=== PATIENT | male | born 1950 | race Two or more races ===

== ENCOUNTER 2019-04-18 20:03 | Inpatient (IN) ==
[2019-04-18] MEDS ORDERED: SODIUM CHLORIDE 0.9% 1000ML 1,000 ML IV ONE (20:48)
[2019-04-18] MEDS ORDERED: KETOROLAC TROMETHAMINE 15 MG/ML VIAL IV STA (20:48)
[2019-04-18 21:42] LABS: Basophils # (auto) 0.02 K/uL (0-0.2); Basophils % (auto) 0.2 %; Eosinophils # (auto) 0.03 K/uL (0-0.5); Eosinophils % (auto) 0.3 %; Hematocrit (blood only) 36.2 % (42-52); Hemoglobin 12.2 g/dL (14.0-18.0); Immature Granulocytes # (auto) 0.01 K/uL (0.00-0.02); Immature Granulocytes % (auto) 0.1 %; Lymphocytes # (auto) 0.49 K/uL (1.2-3.4); Lymphocytes % (auto) 5.1 %; Mean Corpuscular Hgb Conc 33.7 g/dL (32-36); Mean Platelet Volume 9.7 fL (7.4-10.4); Monocytes # (auto) 0.67 K/uL (0.11-0.59); Neutrophils % (auto) 87.3 %; Platelet Count 297 K/uL (130-400); RDW Coefficient of Variation 14.7 % (11.5-14.5); RDW Standard Deviation 44.8 fL (36.4-46.3); Red Blood Count 4.36 M/uL (4.7-6.1); White Blood Count 9.62 K/uL (4.8-10.8)
[2019-04-18 21:53] LABS: INR 1.2 (0.9-1.1); Partial Thromboplastin Ratio 1.2; Partial Thromboplastin Time 32.1 Seconds (21.0-31.0); Prothrombin Time 11.7 Seconds (9.0-12.0)
[2019-04-18 21:55] LABS: Albumin Level 3.1 gm/dl (3.4-5.0); BUN Creatinine Ratio 13.4 (10-20); Creatinine Clr Calc Pharmacy 80.3 ml/min; Est GFR (African American) 91.6; Magnesium 2.2 mg/dl (1.8-2.4); Potassium 3.5 mmol/L (3.5-5.1)
[2019-04-18] MEDS ORDERED: CEFEPIME 2,000 MG/20 ML VIAL IV STA (21:56)
[2019-04-18 21:58] LABS: Albumin Globulin Ratio 0.8 (0.9-2); Bilirubin,Total 2.1 mg/dl (0.2-1); Globulin 3.9 gm/dl (2.5-4.0)
--- NOTE | 2019-04-18 21:58 | XRay Report ---
XR chest 1V portable CLINICAL HISTORY: Sepsis COMPARISON STUDY: No previous studies for comparison. FINDINGS: Lung volumes are normal. Lungs are clear. There is no pneumothorax or pleural effusion. Car diac size is normal. Mediastinal contours are normal. There is no evidence for pulmonary edema. Lucen cy under the hemidiaphragms favors pneumoperitoneum. IMPRESSION: 1. Lucency under the hemidiaphragms which favors pneumoperitoneum. This could be correlated with abdo shahram pain. Findings discussed with Dr. Lucero at time of dictation. 2. No acute cardiopulmonary findings. Electronically signed by: Lee Mcdowell M.D. 04/18/2019 9:56 PM
[2019-04-18 22:11] LABS: Procalcitonin 0.59 ng/ml (0-0.5)
--- NOTE | 2019-04-18 22:40 | CT Scan Report ---
CT OF THE ABDOMEN AND PELVIS WITHOUT CONTRAST CLINICAL HISTORY: poss perf or free air COMPARISON STUDY: No previous studies for comparison. TECHNIQUE: Axial images of the abdomen and pelvis were obtained without IV contrast. Images were revi ewed in the axial, sagittal, and coronal planes. Automated exposure control was utilized for the tracee dy. A dose lowering technique was utilized adhering to the principles of ALARA. FINDINGS: Lung bases are unremarkable. A small amount of pneumomediastinum located anterior to the di stal esophagus likely originates from the abdomen and pelvis. There is extensive pneumoperitoneum. Th e source for pneumoperitoneum is not clear on this examination. There is colonic diverticulosis. No b owel wall thickening is identified to definitively indicate acute diverticulitis. Unenhanced images o f the liver, adrenal glands, kidneys and pancreas are unremarkable. There is no biliary or pancreatic ductal dilatation. There is minimal pericholecystic infiltration however the gallbladder is not dist ended. There is no hydronephrosis. There is mild splenomegaly. Trace perihepatic ascites is noted. Th ere is no pneumatosis. The appendix is unremarkable. Note is made of a complex fluid collection withi n the left anterior aspect of the pelvis and measures 8.8 x 7.8 cm this extends adjacent infiltration with suspected thickening of the wall of this fluid collection. There is mass effect upon the bladde r which is mildly distended. An additional 4.7 x 2.9 cm right anterior pelvic fluid collection is not ed. No suspicious osseous lesion is noted. No evidence for a bowel obstruction. The prostate is surgi geraldo absent. Fat-containing left inguinal hernia is noted. There is gas within the umbilical hernia. IMPRESSION: 1. Extensive pneumoperitoneum. In the absence of recent procedure, the findings suggest a perforated hollow viscus. Definitive source not identified on this exam although considerations include a perfor ated diverticulum or peptic ulcer. 2. 8.8 x 7.8 cm hypodensity within the left anterior aspect of the pelvis with wall thickening and ad jacent infiltration. Given prostatectomy, this favors a lymphocele and the appearance raises the poss ibility of an infected lymphocele. A simple appearing 4.7 x 2.9 cm right anterior pelvic fluid collec tion which may reflect an additional lymphocele. 3. Mild splenomegaly. Electronically signed by: Lee Mcdowell M.D. 04/18/2019 10:38 PM
[2019-04-18 22:47] LABS: Lyme Ab IgG w/WB Rflx Negative (Negative); Lyme Ab IgM w/WB Rflx Negative (Negative)
[2019-04-18] MEDS ORDERED: ACETAMINOPHEN 1,000 MG/100 ML VIAL IV STA (23:05)
[2019-04-18 23:07] LABS: Appearance Urine Clear (Clear); Bilirubin Urine Negative (Negative); Blood Urine Negative (Negative); Color Urine Yellow; Glucose Urine UA Negative (Negative); Ketones Urine 1+ (Negative); Leukocyte Esterase Urine Negative (Negative); Nitrite Urine Negative (Negative); Protein Urine Negative (Negative); Specific Gravity Urine 1.012 (1.000-1.030); Urobilinogen Urine Positive (Negative); pH Urine 5.5 (4.5-7.5)
--- NOTE | 2019-04-19 00:33 | Surgery Consultation ---
Date of Consultation April 19, 2019 Assessment & Plan (1) Intra-abdominal free air of unknown etiology: This patient presented with fever. He had no abdominal pain whatsoever. His abdominal exam is completely benign with no tenderness and normal bowel sounds. His lactate level is 1.0 and his white blood cell count is normal. He has no history of diverticulitis nor does have a history of peptic ulcer disease. There is no pain or tenderness in the left lower quadrant or in the upper abdomen. The etiology of the free air is unclear but there is no peritonitis at the present time. I would not recommend surgical intervention immediately. I agree with antibiotics and IV fluid hydration. I would keep him n.p.o. (2) Fever: As above (3) Intraabdominal fluid collection: The intra-abdominal fluid collection is probably related to his previous surgery. It may be a lymphocele but considering the fever no other obvious identifiable source of this may have become infected and may be an abscess. Per cutaneous CT-guided drainage would be a first option. The patient has expressed a wish to possibly go back to the [facility]. That would not be feasible tonight but may be able to be arranged in the morning. History of Present Illness Reason for Consultation: Intra-abdominal free air Requesting Physician: Dr. Lucero History of Present Illness Dr. Lucero asked me to see this 68-year-old male who presented to the emergency room with acute date of fever that went as high as 103. About 6 weeks ago he underwent a laparoscopic single site prostatectomy. He was discharged on postoperative day #1. He has been doing very well until 3 days ago when he got out of the shower and while toweling off felt a chill. From that point on he has had intermittent fever with temperatures as high as 103. When his temperature is elevated he feels poorly in the sense of fatigue. He has not had any abdominal pain whatsoever over these last 3 days. He had some mild nausea on the day that the fevers began but that is resolved. He has no vomiting. His bowels have been irregular. They are formed for the most part. Was taking a stool softener and that gave him some loose stool. He has not seen melena or hematochezia. He is hungry at the present time. He had no syncope or near syncope. He had a colonoscopy that he thinks was in October of this year. He was told that he had diverticuli but he has no history of diverticulitis. He takes Tums as an antiacid on rare occasion. He has no history of peptic ulcer disease. At the present time his temperature has returned back to below 37. His heart rate is now in the 80s. He was never hypotensive. He denies dysuria and hematuria. He has not had difficulty passing his urine. Allergies Allergy/AdvReac Type Severity Reaction Status Date / Time Penicillins Allergy Hives Verified 04/19/19 00:14 Home Medications Home Medications Medication Instructions Recorded Confirmed Type acetaminophen [Tylenol Extra 1,000 mg PO Q6H PRN 04/19/19 04/19/19 History Strength] aspirin [Aspirin Low Dose] 81 mg PO DAILY 04/19/19 04/19/19 History atorvastatin 40 mg PO DAILY 04/19/19 04/19/19 History ibuprofen 400 mg PO Q6H PRN 04/19/19 04/19/19 History metformin 1,000 mg PO HS 04/19/19 04/19/19 History omega-3 acid ethyl esters 1 cap PO DAILY 04/19/19 04/19/19 History ramipril 5 mg PO DAILY 04/19/19 04/19/19 History Patient History Medical History Elevated bilirubin (Chronic) Diabetes type 2, controlled Hypercholesterolemia Hypertension Surgical History H/O prostatectomy (Chronic) laparoscopic single site at [facility] 03/06 H/O hemorrhoidectomy Family History Other No significant family history Social History Preferred Language: Taiwanese Feels Safe at Home: Yes Smoking Status: Never smoker Review of Systems Constitutional: + fever, + chills, + fatigue and + weight loss (25 pounds over the last 2 months) Respiratory: no cough and no dyspnea Cardiovascular: no chest pain, no dyspnea at rest and no edema Gastrointestinal: as per Subjective / HPI Genitourinary: + as per Subjective / HPI Neurologic: no gait abnormality Physical Exam Constitutional: well developed; no acute distress Neck: trachea midline Respiratory: normal respiratory effort, lungs clear to auscultation Cardiovascular: Rate/Rhythm: regular rate and regular rhythm Gastrointestinal (Abdomen): Inspection/Auscultation: abdomen normal to inspection, normal bowel sounds and + abdominal surgical incision (Clean, dry and intact); abdomen not distended Percussion/Palpation: abdomen soft and + hernia (Small easily reduced and nontender umbilical hernia); abdomen nontender Skin: no rashes Lymphatic: no cervical lymphadenopathy Results & Data Vital Signs (Past 12 Hours) Vital Signs Temp Pulse Resp BP Pulse Ox 04/19/19 00:01 97 04/19/19 00:00 130/73 97 04/18/19 23:45 99 04/18/19 23:31 95 04/18/19 23:30 96 04/18/19 23:15 96 04/18/19 23:11 97 04/18/19 23:10 36.5 C 115/61 96 04/18/19 22:45 95 04/18/19 22:43 96 04/18/19 22:42 107/58 L 96 04/18/19 22:06 95 04/18/19 22:00 122/64 95 04/18/19 21:18 94 04/18/19 20:20 38.8 C H 107 H 20 130/63 97 Laboratory Results 04/18/19 04/18/19 04/18/19 Range/Units 23:00 21:30 21:28 WBC (4.8-10.8) K/uL RBC (4.7-6.1) M/uL Hgb (14.0-18.0) g/dL Hct (42-52) % MCV (80-100) fL MCH (25-34) pg MCHC (32-36) g/dL RDW Std Deviation (36.4-46.3) fL RDW Coeff of Marnie (11.5-14.5) % Plt Count (130-400) K/uL MPV (7.4-10.4) fL Immature Gran % (Auto) % Neut % (Auto) % Lymph % (Auto) % Gates % (Auto) % Eos % (Auto) % Baso % (Auto) % Immature Gran # (Auto) (0.00-0.02) K/uL Neut # (Auto) (1.4-6.5) K/uL Lymph # (Auto) (1.2-3.4) K/uL Gates # (Auto) (0.11-0.59) K/uL Eos # (Auto) (0-0.5) K/uL Baso # (Auto) (0-0.2) K/uL PT (9.0-12.0) Seconds INR (0.9-1.1) APTT (21.0-31.0) Seconds PTT Ratio Sodium (136-145) mmol/L Potassium (3.5-5.1) mmol/L Chloride (98-107) mmol/L Carbon Dioxide (21-32) mmol/L Anion Gap (3-11) BUN (7-18) mg/dl Creatinine (0.6-1.4) mg/dl Est Cr Clr Drug Dosing ml/min Est GFR ( Amer) Est GFR (Non-Af Amer) BUN/Creatinine Ratio (10-20) Glucose (70-99) mg/dl Lactate 1.0 (0.4-2.0) mmol/L Calcium (8.5-10.1) mg/dl Magnesium (1.8-2.4) mg/dl Total Bilirubin (0.2-1) mg/dl AST (15-37) U/L ALT (12-78) U/L Alkaline Phosphatase (45-117) U/L Total Protein (6.4-8.2) gm/dl Albumin (3.4-5.0) gm/dl Globulin (2.5-4.0) gm/dl Albumin/Globulin Ratio (0.9-2) Procalcitonin 0.59 H (0-0.5) ng/ml Urine Color Yellow Urine Appearance Clear (Clear) Urine pH 5.5 (4.5-7.5) Ur Specific Herlong 1.012 (1.000-1.030) Urine Protein Negative (Negative) Urine Glucose (UA) Negative (Negative) Urine Ketones 1+ H (Negative) Urine Blood Negative (Negative) Urine Nitrite Negative (Negative) Urine Bilirubin Negative (Negative) Urine Urobilinogen Positive H (Negative) Ur Leukocyte Esterase Negative (Negative) Lyme Disease IgG Ab Negative (Negative) Lyme Disease IgM Ab Negative (Negative) 04/18/19 04/18/19 04/18/19 Range/Units 21:28 21:28 21:28 WBC 9.62 (4.8-10.8) K/uL RBC 4.36 L (4.7-6.1) M/uL Hgb 12.2 L (14.0-18.0) g/dL Hct 36.2 L (42-52) % MCV 83.0 (80-100) fL MCH 28.0 (25-34) pg MCHC 33.7 (32-36) g/dL RDW Std Deviation 44.8 (36.4-46.3) fL RDW Coeff of Marnie 14.7 H (11.5-14.5) % Plt Count 297 (130-400) K/uL MPV 9.7 (7.4-10.4) fL Immature Gran % (Auto) 0.1 % Neut % (Auto) 87.3 % Lymph % (Auto) 5.1 % Gates % (Auto) 7.0 % Eos % (Auto) 0.3 % Baso % (Auto) 0.2 % Immature Gran # (Auto) 0.01 (0.00-0.02) K/uL Neut # (Auto) 8.40 H (1.4-6.5) K/uL Lymph # (Auto) 0.49 L (1.2-3.4) K/uL Gates # (Auto) 0.67 H (0.11-0.59) K/uL Eos # (Auto) 0.03 (0-0.5) K/uL Baso # (Auto) 0.02 (0-0.2) K/uL PT 11.7 (9.0-12.0) Seconds INR 1.2 H (0.9-1.1) APTT 32.1 H (21.0-31.0) Seconds PTT Ratio 1.2 Sodium 135 L (136-145) mmol/L Potassium 3.5 (3.5-5.1) mmol/L Chloride 104 (98-107) mmol/L Carbon Dioxide 23 (21-32) mmol/L Anion Gap 9.0 (3-11) BUN 13 (7-18) mg/dl Creatinine 0.99 (0.6-1.4) mg/dl Est Cr Clr Drug Dosing 80.3 ml/min Est GFR ( Amer) 91.6 Est GFR (Non-Af Amer) 79.0 BUN/Creatinine Ratio 13.4 (10-20) Glucose 144 H (70-99) mg/dl Lactate (0.4-2.0) mmol/L Calcium 9.0 (8.5-10.1) mg/dl Magnesium 2.2 (1.8-2.4) mg/dl Total Bilirubin 2.1 H (0.2-1) mg/dl AST 15 (15-37) U/L ALT 25 (12-78) U/L Alkaline Phosphatase 94 (45-117) U/L Total Protein 7.0 (6.4-8.2) gm/dl Albumin 3.1 L (3.4-5.0) gm/dl Globulin 3.9 (2.5-4.0) gm/dl Albumin/Globulin Ratio 0.8 L (0.9-2) Procalcitonin (0-0.5) ng/ml Urine Color Urine Appearance (Clear) Urine pH (4.5-7.5) Ur Specific Herlong (1.000-1.030) Urine Protein (Negative) Urine Glucose (UA) (Negative) Urine Ketones (Negative) Urine Blood (Negative) Urine Nitrite (Negative) Urine Bilirubin (Negative) Urine Urobilinogen (Negative) Ur Leukocyte Esterase (Negative) Lyme Disease IgG Ab (Negative) Lyme Disease IgM Ab (Negative) Diagnostic Findings FINDINGS: Lung bases are unremarkable. A small amount of pneumomediastinum located anterior to the distal esophagus likely originates from the abdomen and pelvis. There is extensive pneumoperitoneum. The source for pneumoperitoneum is not clear on this examination. There is colonic diverticulosis. No bowel wall thickening is identified to definitively indicate acute diverticulitis. Unenhanced images of the liver, adrenal glands, kidneys and pancreas are unremarkable. There is no biliary or pancreatic ductal dilatation. There is minimal pericholecystic infiltration however the gallbladder is not distended. There is no hydronephrosis. There is mild splenomegaly. Trace perihepatic ascites is noted. There is no pneumatosis. The appendix is unremarkable. Note is made of a complex fluid collection within the left anterior aspect of the pelvis and measures 8.8 x 7.8 cm this extends adjacent infiltration with suspected thickening of the wall of this fluid collection. There is mass effect upon the bladder which is mildly distended. An additional 4.7 x 2.9 cm right anterior pelvic fluid collection is noted. No suspicious osseous lesion is noted. No evidence for a bowel obstruction. The prostate is surgically absent. Fat- containing left inguinal hernia is noted. There is gas within the umbilical hernia. IMPRESSION: 1. Extensive pneumoperitoneum. In the absence of recent procedure, the findings suggest a perforated hollow viscus. Definitive source not identified on this exam although considerations include a perforated diverticulum or peptic ulcer. 2. 8.8 x 7.8 cm hypodensity within the left anterior aspect of the pelvis with wall thickening and adjacent infiltration. Given prostatectomy, this favors a lymphocele and the appearance raises the possibility of an infected lymphocele. A simple appearing 4.7 x 2.9 cm right anterior pelvic fluid collection which may reflect an additional lymphocele. 3. Mild splenomegaly. (1) Fever Fever type: unspecified Qualified Code(s): R50.9 - Fever, unspecified
[2019-04-19] MEDS ORDERED: NITROGLYCERIN SL 0.4 MG/TAB TAB SL PRN (01:00)
[2019-04-19] MEDS ORDERED: ACETAMINOPHEN 325 MG TAB PO PRN (01:00)
[2019-04-19] MEDS ORDERED: ONDANSETRON INJ 2 MG/ML 2 ML VIAL IV PRN (01:00)
[2019-04-19] MEDS ORDERED: CEFEPIME CONSULT ACTIVE PRN (01:04)
[2019-04-19] MEDS: metroNIDAZOLE 500 MG/100 ML BAG IV SCH ×2 (01:14→09:28)
[2019-04-19] MEDS: SODIUM CHLORIDE 0.9% 1000ML 1,000 ML IV SCH ×2 (01:14→09:29)
[2019-04-19] MEDS ORDERED: GLUCOSE 10 TABS/TUBE PO PRN (01:15)
[2019-04-19] MEDS ORDERED: DEXTROSE 50% 50 ML SYRINGE IV PRN (01:15)
[2019-04-19] MEDS ORDERED: CARBOHYDRATES FOR HYPOGLYCEMIA PO PRN (01:15)
[2019-04-19] MEDS ORDERED: GLUCOSE 40% GEL 15 GM TUBE PO PRN (01:15)
[2019-04-19] MEDS ORDERED: GLUCAGON FOR INJ 1 MG VIAL IM PRN (01:15)
--- NOTE | 2019-04-19 02:44 | History and Physical Report ---
DATE OF ADMISSION: 04/19/2019 CHIEF COMPLAINT: Fever. HISTORY OF PRESENT ILLNESS: This is a 68-year-old male with past medical history significant for type 2 diabetes, obstructive sleep apnea, hypertension, recently diagnosed prostate cancer. On 03/08/2019, he had laparoscopic prostatectomy at [facility] just with single laparoscopic port. Since surgery he did fine, but since last Thursday he had a temperature at home and was shaky. He took Tylenol and took rest, it went away, and Thursday was fine and Thursday he had again some mild temperature. He took rest and it got resolved and again on Thursday morning he had low-grade temperature, his temperature was like 98, but as the day progressed later in the evening, the temperature spiked to 103. Then at that time, he decided to come to the ER. In the ER, when he came in initially, his temperature was 38.8. Currently afebrile, his hemodynamics are stable. No leukocytosis, but his CAT scan of the abdomen and pelvis is showing extensive pneumoperitoneum for possible perforated hollow viscus, but patient denies any abdominal pain. He had some nausea on Thursday and Thursday, but today does not have any nausea. Normal bowel movements. No blood in the stools, no black stools. Normal bladder movements. No hematuria, no burning micturition. No chest pain, no shortness of breath, no cough, no headache, no blurred vision, no earache, no runny nose, no sore throat, no difficulty swallowing. Appetite is okay. Ambulating okay. No swelling in the legs. No rash. ER notified general surgery and they want to admit him to hospital and place him on antibiotics and they will come and see the patient. Currently, the patient is hemodynamically stable and patient is totally asymptomatic. ALLERGIES: PENICILLINS. PAST MEDICAL HISTORY: As mentioned above. PAST SURGICAL HISTORY: Left and right eye grafts, colonoscopy, simple hemorrhoidectomy, prostate biopsy, cataract surgeries. MEDICATIONS: The patient is on ramipril 5 mg p.o. daily, omega-3 fatty acids 4 capsules every day, metformin 1000 mg p.o. nightly, Lipitor 40 mg p.o. daily, aspirin 81 mg p.o. daily. FAMILY HISTORY: Significant for mother had colon cancer, maternal grandmother had glaucoma, sister has cancer. SOCIAL HISTORY: and lives with his . No smoking, alcohol occasional. No drug use. REVIEW OF SYMPTOMS: As per HPI. Rest of the review of symptoms is negative. PHYSICAL EXAMINATION: GENERAL: The patient is of moderate build, not in acute distress. VITAL SIGNS: Temperature 36.5, pulse 107, respiratory rate 20, blood pressure 130/77, oxygen 97% on room air. HEENT: No pallor, mild icterus. Pupils equal, round, and reactive to light. NECK: No JVD, no neck masses, no carotid bruits. CARDIOVASCULAR: S1, S2 heard, regular rate and rhythm, no murmur, no gallop. RESPIRATORY SYSTEM: Normal AP diameter. No accessory muscle use. No wheezing, no crackles. ABDOMEN: Soft, bowel sounds present. Nontender. No distention. CENTRAL NERVOUS SYSTEM: Cranial nerves II-XII grossly intact. Nonfocal. EXTREMITIES: No edema, no erythema. LABORATORY DATA: WBC 9.6, hemoglobin 12.2, hematocrit 36.2, platelets 297. PT 11.7, INR 1.2, APTT 32.1. Sodium 135, potassium 3.5, chloride 104, bicarbonate 23, BUN 13, creatinine 0.9, serum glucose 144. Lactate 1.0, calcium 9, magnesium 2.2, total bilirubin 2.1, AST 15, ALT 25, alkaline phosphatase 94. Procalcitonin 0.59. Urinalysis, positive for urobilinogen. He is Lyme negative. IMAGING DATA: CT of the abdomen and pelvis shows extensive pneumoperitoneum in the absence of recent procedure findings suggest perforated hollow viscus. Definite source not identified, although consideration included perforated diverticulum or peptic ulcer. A second 8.8 x 7.8 cm hypodensity within the left anterior aspect of the pelvis with wall thickening and distant infiltration. Given prostatectomy, this favors a lymphocele and the appearance has the possibility of an infected lymphocele. A simple-appearing 4.7 x 2.7 cm anterior pelvic fluid collection which may reflect an additional lymphocele. Mild splenomegaly. CXR lucency under hemidiaphragm favors pneumoperitoneum. This could be correlated with abdominal pain. , no acute cardiopulmonary findings. ASSESSMENT AND PLAN: A 68-year-old male who presents with fever. 1. Fever. The patient recently had laparoscopic prostatectomy at [facility] on 03/08/2019. Since then he was doing fine and developed fever since last Thursday. He is currently hemodynamically stable. Lactic acid is normal. Received iv cefepime in the ER. No leukocytosis. His bilirubin is 2.1, but his LFTs are normal. Lyme screen in negative. CT of the abdomen and pelvis is showing extensive pneumoperitoneum and also 8.8 x 7.8 cm hypodensity in the anterior aspect the pelvis, possible lymphocele. ER consulted stat surgical consult, but surgery does not know exactly what is happening as there was no abdominal pain and abdomen is not tender and lactic acid is normal. They do not think this is any ruptured diverticulum or ruptured peptic ulcer disease, but thinks that is possibly might be an abscess at surgical site. Currently starting on IV antibiotics cefepime and Flagyl. We will also consult urology for their opinion and closely monitor in the tele floor.May need to be transferred to tertiary center for possible drainage of lymphocele/abscess. 2. Elevated bilirubin, could be Gilbert syndrome, we will follow the repeat labs. 3. History of prediabetes, holding metformin, placed on insulin sliding scale, HbA1c level. 4. History of hyperlipidemia. Hold statin for now. 5. History of prostate cancer status post prostatectomy as above. 6. Deep venous thrombosis prophylaxis, sequential compression devices for now. DISPOSITION: Admit to tele floor. To be determined.Level 1 full code. MTDD
[2019-04-19] MEDS: INSULIN ASPART 100 UNITS/ML 3 ML PEN SC SCH ×2 (05:25→12:30)
[2019-04-19] MEDS ORDERED: CEFEPIME 2,000 MG in SYRINGE 7.5 ML IV SCH (06:00)
[2019-04-19 06:16] LABS: Basophils # (auto) 0.01 K/uL (0-0.2); Basophils % (auto) 0.1 %; Eosinophils # (auto) 0.12 K/uL (0-0.5); Hematocrit (blood only) 38.3 % (42-52); Hemoglobin 12.8 g/dL (14.0-18.0); Immature Granulocytes # (auto) 0.03 K/uL (0.00-0.02); Immature Granulocytes % (auto) 0.2 %; Mean Corpuscular Hgb Conc 33.4 g/dL (32-36); Mean Corpuscular Volume 84.9 fL (80-100); Mean Platelet Volume 9.7 fL (7.4-10.4); Monocytes # (auto) 1.13 K/uL (0.11-0.59); Monocytes % (auto) 9.2 %; Neutrophils # (auto) 9.85 K/uL (1.4-6.5); Neutrophils % (auto) 80.5 %; Platelet Count 325 K/uL (130-400); RDW Coefficient of Variation 14.9 % (11.5-14.5); RDW Standard Deviation 46.2 fL (36.4-46.3); Red Blood Count 4.51 M/uL (4.7-6.1); White Blood Count 12.24 K/uL (4.8-10.8)
[2019-04-19 06:42] LABS: Estimated Average Glucose 114 mg/dl; Hemoglobin A1C 5.6 % (4.5-5.6)
[2019-04-19 06:45] LABS: BUN Creatinine Ratio 12.1 (10-20); Bilirubin Direct 0.7 mg/dl (0-0.2); Calcium 8.9 mg/dl (8.5-10.1); Creatinine Clr Calc Pharmacy 85.2 ml/min; Est GFR (African American) 98.8; Est GFR (Non-African American) 85.2; Magnesium 2.2 mg/dl (1.8-2.4); Potassium 3.8 mmol/L (3.5-5.1)
[2019-04-19 06:47] LABS: Bilirubin,Total 1.7 mg/dl (0.2-1)
--- NOTE | 2019-04-19 08:28 | Surgery Progress Note ---
Date of Service April 19, 2019 Assessment & Plan (1) Intra-abdominal free air of unknown etiology: Patient's abdomen remains benign. The etiology of the free air is not clear. He has no peritonitis. This would be a very unusual presentation for perforated viscus considering the fact that he has had no pain at all. His white blood cell count has increased today. I would continue with the antibiotics. Urology to see the patient Consider consultation with his surgeon at the [facility]. (2) Intraabdominal fluid collection: Subjective Feels very well this morning Denies abdominal pain Denies nausea Had elevated temperature again this morning which is the first 1 since admission Physical Exam Gastrointestinal (Abdomen): Inspection/Auscultation: abdomen normal to inspection and normal bowel sounds; abdomen not distended Percussion/Palpation: abdomen soft; abdomen nontender Results & Data Vital Signs (Past 12 Hours) Vital Signs Temp Pulse Pulse Resp BP BP BP 04/19/19 07:44 38.9 C H 97 H 20 128/71 04/19/19 07:40 92 H 04/19/19 03:44 36.5 C 74 65 H 109/70 04/19/19 02:29 78 04/19/19 01:00 36.7 C 82 17 114/68 04/19/19 00:01 04/19/19 00:00 130/73 04/18/19 23:45 04/18/19 23:31 04/18/19 23:30 04/18/19 23:15 04/18/19 23:11 04/18/19 23:10 36.5 C 115/61 04/18/19 22:45 04/18/19 22:43 04/18/19 22:42 107/58 L 04/18/19 22:06 04/18/19 22:00 122/64 04/18/19 21:18 Pulse Ox 04/19/19 07:44 98 04/19/19 07:40 04/19/19 03:44 98 04/19/19 02:29 04/19/19 01:00 97 04/19/19 00:01 97 04/19/19 00:00 97 04/18/19 23:45 99 04/18/19 23:31 95 04/18/19 23:30 96 04/18/19 23:15 96 07/01/19 23:11 97 04/18/19 23:10 96 04/18/19 22:45 95 04/18/19 22:43 96 04/18/19 22:42 96 04/18/19 22:06 95 04/18/19 22:00 95 04/18/19 21:18 94 Laboratory Results 04/19/19 04/19/19 04/19/19 Range/Units 05:36 05:36 05:36 WBC 12.24 H (4.8-10.8) K/uL RBC 4.51 L (4.7-6.1) M/uL Hgb 12.8 L (14.0-18.0) g/dL Hct 38.3 L (42-52) % MCV 84.9 (80-100) fL MCH 28.4 (25-34) pg MCHC 33.4 (32-36) g/dL RDW Std Deviation 46.2 (36.4-46.3) fL RDW Coeff of Marnie 14.9 H (11.5-14.5) % Plt Count 325 (130-400) K/uL MPV 9.7 (7.4-10.4) fL Immature Gran % (Auto) 0.2 % Neut % (Auto) 80.5 % Lymph % (Auto) 9.0 % Eagle % (Auto) 9.2 % Eos % (Auto) 1.0 % Baso % (Auto) 0.1 % Immature Gran # (Auto) 0.03 H (0.00-0.02) K/uL Neut # (Auto) 9.85 H (1.4-6.5) K/uL Lymph # (Auto) 1.10 L (1.2-3.4) K/uL Eagle # (Auto) 1.13 H (0.11-0.59) K/uL Eos # (Auto) 0.12 (0-0.5) K/uL Baso # (Auto) 0.01 (0-0.2) K/uL PT (9.0-12.0) Seconds INR (0.9-1.1) APTT (21.0-31.0) Seconds PTT Ratio Sodium 139 (136-145) mmol/L Potassium 3.8 (3.5-5.1) mmol/L Chloride 108 H (98-107) mmol/L Carbon Dioxide 25 (21-32) mmol/L Anion Gap 6.0 (3-11) BUN 11 (7-18) mg/dl Creatinine 0.93 (0.6-1.4) mg/dl Est Cr Clr Drug Dosing 85.2 ml/min Est GFR ( Amer) 98.8 Est GFR (Non-Af Amer) 85.2 BUN/Creatinine Ratio 12.1 (10-20) Glucose 115 H (70-99) mg/dl POC Glucose (70-99) Estimat Average Glucose 114 mg/dl Hemoglobin A1c 5.6 (4.5-5.6) % Lactate (0.4-2.0) mmol/L Calcium 8.9 (8.5-10.1) mg/dl Magnesium 2.2 (1.8-2.4) mg/dl Total Bilirubin 1.7 H (0.2-1) mg/dl Direct Bilirubin 0.7 H (0-0.2) mg/dl AST 13 L (15-37) U/L ALT 21 (12-78) U/L Alkaline Phosphatase 94 (45-117) U/L Total Protein 7.0 (6.4-8.2) gm/dl Albumin 3.0 L (3.4-5.0) gm/dl Globulin (2.5-4.0) gm/dl Albumin/Globulin Ratio (0.9-2) Procalcitonin (0-0.5) ng/ml Urine Color Urine Appearance (Clear) Urine pH (4.5-7.5) Ur Specific [place] (1.000-1.030) Urine Protein (Negative) Urine Glucose (UA) (Negative) Urine Ketones (Negative) Urine Blood (Negative) Urine Nitrite (Negative) Urine Bilirubin (Negative) Urine Urobilinogen (Negative) Ur Leukocyte Esterase (Negative) Lyme Disease IgG Ab (Negative) Lyme Disease IgM Ab (Negative) 04/19/19 04/18/19 04/18/19 Range/Units 05:24 23:00 21:30 WBC (4.8-10.8) K/uL RBC (4.7-6.1) M/uL Hgb (14.0-18.0) g/dL Hct (42-52) % MCV (80-100) fL MCH (25-34) pg MCHC (32-36) g/dL RDW Std Deviation (36.4-46.3) fL RDW Coeff of Marnie (11.5-14.5) % Plt Count (130-400) K/uL MPV (7.4-10.4) fL Immature Gran % (Auto) % Neut % (Auto) % Lymph % (Auto) % Eagle % (Auto) % Eos % (Auto) % Baso % (Auto) % Immature Gran # (Auto) (0.00-0.02) K/uL Neut # (Auto) (1.4-6.5) K/uL Lymph # (Auto) (1.2-3.4) K/uL Eagle # (Auto) (0.11-0.59) K/uL Eos # (Auto) (0-0.5) K/uL Baso # (Auto) (0-0.2) K/uL PT (9.0-12.0) Seconds INR (0.9-1.1) APTT (21.0-31.0) Seconds PTT Ratio Sodium (136-145) mmol/L Potassium (3.5-5.1) mmol/L Chloride (98-107) mmol/L Carbon Dioxide (21-32) mmol/L Anion Gap (3-11) BUN (7-18) mg/dl Creatinine (0.6-1.4) mg/dl Est Cr Clr Drug Dosing ml/min Est GFR ( Amer) Est GFR (Non-Af Amer) BUN/Creatinine Ratio (10-20) Glucose (70-99) mg/dl POC Glucose 97 (70-99) Estimat Average Glucose mg/dl Hemoglobin A1c (4.5-5.6) % Lactate 1.0 (0.4-2.0) mmol/L Calcium (8.5-10.1) mg/dl Magnesium (1.8-2.4) mg/dl Total Bilirubin (0.2-1) mg/dl Direct Bilirubin (0-0.2) mg/dl AST (15-37) U/L ALT (12-78) U/L Alkaline Phosphatase (45-117) U/L Total Protein (6.4-8.2) gm/dl Albumin (3.4-5.0) gm/dl Globulin (2.5-4.0) gm/dl Albumin/Globulin Ratio (0.9-2) Procalcitonin (0-0.5) ng/ml Urine Color Yellow Urine Appearance Clear (Clear) Urine pH 5.5 (4.5-7.5) Ur Specific [place] 1.012 (1.000-1.030) Urine Protein Negative (Negative) Urine Glucose (UA) Negative (Negative) Urine Ketones 1+ H (Negative) Urine Blood Negative (Negative) Urine Nitrite Negative (Negative) Urine Bilirubin Negative (Negative) Urine Urobilinogen Positive H (Negative) Ur Leukocyte Esterase Negative (Negative) Lyme Disease IgG Ab (Negative) Lyme Disease IgM Ab (Negative) 04/18/19 04/18/19 04/18/19 Range/Units 21:28 21:28 21:28 WBC (4.8-10.8) K/uL RBC (4.7-6.1) M/uL Hgb (14.0-18.0) g/dL Hct (42-52) % MCV (80-100) fL MCH (25-34) pg MCHC (32-36) g/dL RDW Std Deviation (36.4-46.3) fL RDW Coeff of Marnie (11.5-14.5) % Plt Count (130-400) K/uL MPV (7.4-10.4) fL Immature Gran % (Auto) % Neut % (Auto) % Lymph % (Auto) % Eagle % (Auto) % Eos % (Auto) % Baso % (Auto) % Immature Gran # (Auto) (0.00-0.02) K/uL Neut # (Auto) (1.4-6.5) K/uL Lymph # (Auto) (1.2-3.4) K/uL Eagle # (Auto) (0.11-0.59) K/uL Eos # (Auto) (0-0.5) K/uL Baso # (Auto) (0-0.2) K/uL PT 11.7 (9.0-12.0) Seconds INR 1.2 H (0.9-1.1) APTT 32.1 H (21.0-31.0) Seconds PTT Ratio 1.2 Sodium 135 L (136-145) mmol/L Potassium 3.5 (3.5-5.1) mmol/L Chloride 104 (98-107) mmol/L Carbon Dioxide 23 (21-32) mmol/L Anion Gap 9.0 (3-11) BUN 13 (7-18) mg/dl Creatinine 0.99 (0.6-1.4) mg/dl Est Cr Clr Drug Dosing 80.3 ml/min Est GFR ( Amer) 91.6 Est GFR (Non-Af Amer) 79.0 BUN/Creatinine Ratio 13.4 (10-20) Glucose 144 H (70-99) mg/dl POC Glucose (70-99) Estimat Average Glucose mg/dl Hemoglobin A1c (4.5-5.6) % Lactate (0.4-2.0) mmol/L Calcium 9.0 (8.5-10.1) mg/dl Magnesium 2.2 (1.8-2.4) mg/dl Total Bilirubin 2.1 H (0.2-1) mg/dl Direct Bilirubin (0-0.2) mg/dl AST 15 (15-37) U/L ALT 25 (12-78) U/L Alkaline Phosphatase 94 (45-117) U/L Total Protein 7.0 (6.4-8.2) gm/dl Albumin 3.1 L (3.4-5.0) gm/dl Globulin 3.9 (2.5-4.0) gm/dl Albumin/Globulin Ratio 0.8 L (0.9-2) Procalcitonin 0.59 H (0-0.5) ng/ml Urine Color Urine Appearance (Clear) Urine pH (4.5-7.5) Ur Specific Preston (1.000-1.030) Urine Protein (Negative) Urine Glucose (UA) (Negative) Urine Ketones (Negative) Urine Blood (Negative) Urine Nitrite (Negative) Urine Bilirubin (Negative) Urine Urobilinogen (Negative) Ur Leukocyte Esterase (Negative) Lyme Disease IgG Ab Negative (Negative) Lyme Disease IgM Ab Negative (Negative) 04/18/19 Range/Units 21:28 WBC 9.62 (4.8-10.8) K/uL RBC 4.36 L (4.7-6.1) M/uL Hgb 12.2 L (14.0-18.0) g/dL Hct 36.2 L (42-52) % MCV 83.0 (80-100) fL MCH 28.0 (25-34) pg MCHC 33.7 (32-36) g/dL RDW Std Deviation 44.8 (36.4-46.3) fL RDW Coeff of Marnie 14.7 H (11.5-14.5) % Plt Count 297 (130-400) K/uL MPV 9.7 (7.4-10.4) fL Immature Gran % (Auto) 0.1 % Neut % (Auto) 87.3 % Lymph % (Auto) 5.1 % Eagle % (Auto) 7.0 % Eos % (Auto) 0.3 % Baso % (Auto) 0.2 % Immature Gran # (Auto) 0.01 (0.00-0.02) K/uL Neut # (Auto) 8.40 H (1.4-6.5) K/uL Lymph # (Auto) 0.49 L (1.2-3.4) K/uL Eagle # (Auto) 0.67 H (0.11-0.59) K/uL Eos # (Auto) 0.03 (0-0.5) K/uL Baso # (Auto) 0.02 (0-0.2) K/uL PT (9.0-12.0) Seconds INR (0.9-1.1) APTT (21.0-31.0) Seconds PTT Ratio Sodium (136-145) mmol/L Potassium (3.5-5.1) mmol/L Chloride (98-107) mmol/L Carbon Dioxide (21-32) mmol/L Anion Gap (3-11) BUN (7-18) mg/dl Creatinine (0.6-1.4) mg/dl Est Cr Clr Drug Dosing ml/min Est GFR ( Amer) Est GFR (Non-Af Amer) BUN/Creatinine Ratio (10-20) Glucose (70-99) mg/dl POC Glucose (70-99) Estimat Average Glucose mg/dl Hemoglobin A1c (4.5-5.6) % Lactate (0.4-2.0) mmol/L Calcium (8.5-10.1) mg/dl Magnesium (1.8-2.4) mg/dl Total Bilirubin (0.2-1) mg/dl Direct Bilirubin (0-0.2) mg/dl AST (15-37) U/L ALT (12-78) U/L Alkaline Phosphatase (45-117) U/L Total Protein (6.4-8.2) gm/dl Albumin (3.4-5.0) gm/dl Globulin (2.5-4.0) gm/dl Albumin/Globulin Ratio (0.9-2) Procalcitonin (0-0.5) ng/ml Urine Color Urine Appearance (Clear) Urine pH (4.5-7.5) Ur Specific Preston (1.000-1.030) Urine Protein (Negative) Urine Glucose (UA) (Negative) Urine Ketones (Negative) Urine Blood (Negative) Urine Nitrite (Negative) Urine Bilirubin (Negative) Urine Urobilinogen (Negative) Ur Leukocyte Esterase (Negative) Lyme Disease IgG Ab (Negative) Lyme Disease IgM Ab (Negative)
[2019-04-19] MEDS ORDERED: ENALAPRIL MALEATE 10 MG TAB PO SCH (09:00)
--- NOTE | 2019-04-19 09:45 | Discharge Summary ---
Date of Service April 19, 2019 Admission HPI Per Admitting Provider 68-year-old male with past medical history significant for type 2 diabetes, obstructive sleep apnea, hypertension, recently diagnosed prostate cancer. On 03/08/2019, he had laparoscopic prostatectomy at [facility] just with single laparoscopic port. Since surgery he did fine, but since last Thursday he had a temperature at home and was shaky. He took Tylenol and took rest, it went away, and Thursday was fine and Thursday he had again some mild temperature. He took rest and it got resolved and again on Thursday morning he had low-grade temperature, his temperature was like 98, but as the day progressed later in the evening, the temperature spiked to 103. Then at that time, he decided to come to the ER. In the ER, when he came in initially, his temperature was 38.8. Currently afebrile, his hemodynamics are stable. No leukocytosis, but his CAT scan of the abdomen and pelvis is showing extensive pneumoperitoneum for possible perforated hollow viscus, but patient denies any abdominal pain. He had some nausea on Thursday and Thursday, but today does not have any nausea. Normal bowel movements. No blood in the stools, no black stools. Normal bladder movements. No hematuria, no burning micturition. No chest pain, no shortness of breath, no cough, no headache, no blurred vision, no earache, no runny nose, no sore throat, no difficulty swallowing. Appetite is okay. Ambulating okay. No swelling in the legs. No rash. ER notified general surgery and they want to admit him to hospital and place him on antibiotics and they will come and see the patient. Currently, the patient is hemodynamically stable and patient is totally asymptomatic. Admission Exam Per Admitting Provider GENERAL: The patient is of moderate build, not in acute distress. VITAL SIGNS: Temperature 36.5, pulse 107, respiratory rate 20, blood pressure 130/77, oxygen 97% on room air. HEENT: No pallor, mild icterus. Pupils equal, round, and reactive to light. NECK: No JVD, no neck masses, no carotid bruits. CARDIOVASCULAR: S1, S2 heard, regular rate and rhythm, no murmur, no gallop. RESPIRATORY SYSTEM: Normal AP diameter. No accessory muscle use. No wheezing, no crackles. ABDOMEN: Soft, bowel sounds present. Nontender. No distention. CENTRAL NERVOUS SYSTEM: Cranial nerves II-XII grossly intact. Nonfocal. EXTREMITIES: No edema, no erythema. Principal Diagnosis Abdominal fluid collection x2 Fever chills and shakes Status post laparoscopic prostatectomy March 08, 2019 at the [facility] Extensive pneumoperitoneum Type 2 diabetes Elevated bilirubin Anemia Discharge Exam ROS-No Headache, No Visual Changes, No Nausea, No Vomiting, positive fever, positive chills, No Neck Pain or Stiffness, No Chest Pain, No Palpitations, No SOB, No GONZALEZ, No Cough, No Sputum, No Wheezing, No Abdominal Pain, No Diarrhea, No Hematemesis, No Hemoptysis, No Unexpected Weight Loss, No Flank pain, No Melena, No Hematochezia, No Frequency, No Urgency, No Burning, No Hematuria, No Rashes, No Diaphoresis. Appetite is Normal Physical Exam Gen-AAO x 3, NAD, Febrile Head-NCAT, EOMI, PERRLA, Anicteric Sclera, No Posterior Pharyngeal Erythema Neck-Supple, No JVD, No Thyromegaly, No Masses, No LAD, No Bruits Lungs-Clear to Auscultation Bilaterally, No Rales, No Rhonchi, No Wheezing, No Crepitus Chest-No S4, +S1, +S2, No S3, No Murmurs, No Rubs, No Gallops, No Ectopy Abdomen-Soft, Bowel Sounds Present, Non Tender, Non Distended, No Hepatomegaly, No Splenomegaly, No Palpable Masses, No Rebound, No Rigidity, No Guarding Musculoskeletal-Full Range of Motion Bilaterally, No CVAT Extremities-No Cyanosis, No Clubbing, No Edema Nuero-Cranial Nerves II-XII grossly intact, Motor WNL, DTRs WNL, Strength WNL, Non Focal Psych-Normal Mood Discharge Data Allergies Allergy/AdvReac Type Severity Reaction Status Date / Time Penicillins Allergy Hives Verified 04/19/19 00:14 Consultations 04/18/19 23:06 Consult General Surgery Stat ED Decision to Admit Stat 04/19/19 08:00 Consult Urology Routine Ordered Studies 04/18/19 21:56 CT abd pelvis wo con Stat-IMPRESSION: 1. Extensive pneumoperitoneum. In the absence of recent procedure, the findings suggest a perforated hollow viscus. Definitive source not identified on this exam although considerations include a perforated diverticulum or peptic ulcer. 2. 8.8 x 7.8 cm hypodensity within the left anterior aspect of the pelvis with wall thickening and adjacent infiltration. Given prostatectomy, this favors a lymphocele and the appearance raises the possibility of an infected lymphocele. A simple appearing 4.7 x 2.9 cm right anterior pelvic fluid collection which may reflect an additional lymphocele. 3. Mild splenomegaly. Current Diagnoses Other specified disorders of peritoneum (04/19/19) Other ascites (04/19/19) Fever, unspecified (04/19/19) Allergies Penicillins Allergy (Verified 04/19/19 00:14) Hives Height/Weight/Isolation Height 5 ft 7 in Weight 93.6 kg Chemistry 04/18/19 04/19/19 21:28 05:36 Sodium 135 L 139 Potassium 3.5 3.8 Chloride 104 108 H Carbon Dioxide 23 25 Anion Gap 9.0 6.0 BUN 13 11 Creatinine 0.99 0.93 Glucose 144 H 115 H Urinalysis 04/18/19 23:00 Urine Color Yellow Urine Appearance Clear Urine pH 5.5 Ur Specific [place] 1.012 Urine Protein Negative Urine Glucose (UA) Negative Urine Ketones 1+ H Urine Blood Negative Urine Nitrite Negative Urine Bilirubin Negative Microbiology 04/18/19 21:28 Blood Aerobic Blood Culture - Pending 04/18/19 21:28 Blood Anaerobic Blood Culture - Pending 04/18/19 21:30 Blood Aerobic Blood Culture - Pending 04/18/19 21:30 Blood Anaerobic Blood Culture - Pending Hospital Course (1) Intraabdominal fluid collection: (2) Intra-abdominal free air of unknown etiology: (3) Elevated bilirubin: (4) Fever: (5) Anemia: (6) H/O prostatectomy: (7) Elevated bilirubin: Patient was evaluated by surgery and urology, they both felt that he should be transferred to [place] for interventional radiology to drain his to fluid pockets. I discussed the case with Dr. Marroquin who accepted the patient at [facility] and will consult interventional radiology. I will also touch base with his [facility] urologist. Total Time Total Time Spent Total Time Spent (In Minutes): 60 mins Total Time Includes: Examination of the Patient, Discharge Planning, Medication Reconciliation and Communication With Other Providers Discharge Plan Discharge Items Patient Disposition: Transfer Acute Care Hospital Reason For Visit: FEVER Discharge Diagnosis: Abdominal fluid collection x2 Fever chills and shakes Status post laparoscopic prostatectomy March 08, 2019 at the [facility] Extensive pneumoperitoneum Type 2 diabetes Elevated bilirubin Anemia Condition: Good Discharge Goals: Diagnostic testing and Therapeutic intervention Activity: As commented below Activity Comment: Bedrest/NPO Lifting: None Weightbearing: Left weightbearing and Right weightbearing Non-emergency contact: Primary Care Provider Call non-emergency contact if: you have any medication questions, your symptoms worsen and your pain is worsening Follow-up/Referrals: Damian Alfonso MD [Primary Care Provider] - Diet: See below Diet Comment: NPO for now Addtl Provider Instructions: IR consult for drainage of 2 intra-abdominal fluid collections Prescriptions: New enalapril maleate 10 mg Tablet 20 mg PO DAILY Qty: 10 RF: 0 cefepime 2 gram Recon Soln 2 g IV Q12H PRN (Reason: Abscess) Qty: 10 RF: 0 nitroglycerin [Nitrostat] 0.4 mg Tablet, Sublingual 0.4 mg sublingual UD PRN (Reason: chest pain) Qty: 30 RF: 0 acetaminophen [Mapap (acetaminophen)] 325 mg Tablet 650 mg PO Q4H PRN (Reason: fever or pain) Qty: 90 RF: 0 ondansetron HCl (PF) 4 mg/2 mL Solution 4 mg IV Q6H PRN (Reason: nausea and vomiting) Qty: 10 RF: 0 Discontinued atorvastatin 40 mg tablet 40 mg PO DAILY RF: 0 aspirin [Aspirin Low Dose] 81 mg Tablet,Delayed Release (Dr/Ec) 81 mg PO DAILY RF: 0 ramipril 5 mg capsule 5 mg PO DAILY RF: 0 metformin 1,000 mg Tablet Extended Release 24hr 1,000 mg PO HS RF: 0 omega-3 acid ethyl esters 1 gram capsule 1 cap PO DAILY RF: 0 acetaminophen [Tylenol Extra Strength] 500 mg Tablet 1,000 mg PO Q6H PRN (Reason: Fever Or Pain) RF: 0 ibuprofen 200 mg Tablet 400 mg PO Q6H PRN (Reason: Pain) RF: 0 Stand-Alone Forms: [facility] Discharge Orders: Discharge Order (Routine); Ordered 04/19/19 Ordered By: Julio Murphy Admission Data Admit Date/Time: 04/19/19 00:06 Attending Provider: Julio Murphy Admit Provider: Sergio Gilse Primary Care Provider: Damian Alfonso Other Providers: Troy Jean ; Sergio Giles ; Lourdes Jain Service: Telemetry Other Pending Studies at Discharge: No
--- NOTE | 2019-04-19 14:20 | Emergency Department Note ---
Entered by Clayton Coto acting as a scribe for Osmel Lucero MD History of Present Illness General Chief complaint: Fever Stated complaint: FEVER,SHAKING Time Seen by Provider: 04/18/19 20:40 Source: patient History of Present Illness Onset (ago): day(s) 4 Location: head (fever) Pain Consistency: + intermittent Relieved By: + other (temporary relief with Tylenol and Advil) Associated symptoms: + denies other symptoms (congestion, sore throat, diarrhea, rashes, burning urination, and abdominal pain), + nausea/vomiting (positive nausea, negative vomiting) and + other (shaking and dark urine); no cough The patient is a 68 year old M who presents to the Emergency Room with complaints of an intermittent fever that started 4 days ago. The patient states that 4 days ago, his symptoms started with nausea and shaking. He notes that he started to experience a fever. He adds that his fever at its worst was 103.8. He states that he has been taking Tylenol and Advil every 4 hours. He notes that due to the Tylenol and Advil, his fever has been intermittent. He adds that yesterday he thinks he was dehydrated. He also states that he is experiencing dark urine. He denies experiencing coughing, congestion, sore throat, vomiting, diarrhea, rashes, burning urination, and abdominal pain. He states that he had his prostate taken out 5 weeks ago at the [facility]. He denies a history of abdominal surgeries. He also denies experiencing any tick bites. He states that his PCP, Dr. Alfonso, recently ran tests on him which showed an elevated bilirubin. Home Medications Home Medications Medication Instructions Recorded Confirmed Type acetaminophen [Mapap 650 mg PO Q4H PRN #90 tab 04/19/19 Rx (acetaminophen)] cefepime 2 g IV Q12H PRN #10 ea 04/19/19 Rx enalapril maleate 20 mg PO DAILY #10 tab 04/19/19 Rx nitroglycerin [Nitrostat] 0.4 mg SUBLINGUAL UD PRN #30 tab 04/19/19 Rx ondansetron HCl (PF) 4 mg IV Q6H PRN #10 ml 04/19/19 Rx Allergies Allergy/AdvReac Type Severity Reaction Status Date / Time Penicillins Allergy Hives Verified 04/19/19 00:14 Past Med/Surg History Medical History Elevated bilirubin (Chronic) Diabetes type 2, controlled Hypercholesterolemia Hypertension Surgical History H/O prostatectomy (Chronic) laparoscopic single site at [facility] 03/06 H/O hemorrhoidectomy Family History Other No significant family history Social History Preferred Language: Sri Lankan Communication Ability: Effective Safety Supervisor Required: No Beliefs That Will Affect Care: None Current Living Situation: Family Other Information That Helps Us Care for You: No Feels Safe at Home: Yes Safety Concerns: Feels Safe At This Time Smoking Status: Never smoker Do You Dip or Chew Tobacco: No Second Hand Exposure: No Tobacco Cessation Education Requested by Patient: No Hx Alcohol Use: No Hx Substance Use: No Review of Systems See HPI for pertinent positives & negatives. and A total of 10 systems reviewed and were otherwise negative Physical Exam Vital Signs Vital Signs - 24 hr 04/18/19 20:20 04/18/19 21:18 04/18/19 22:00 Temperature 38.8 C H Temperature Source Oral Sepsis Recent Fever Within 48 Hours No Sepsis New/Unexplained Change in Mental Status No Sepsis Action Taken by Nursing No Action Required Pulse Rate 107 H Pulse Rate from SpO2 Sensor 89 Pulse Rhythm Regular Pulse Strength Normal Respiratory Rate 20 Respiratory Effort / Characteristics Non-Labored Spontaneous Respiratory Depth Normal Respiratory Pattern Regular Blood Pressure 130/63 122/64 Blood Pressure Mean 85 83 Blood Pressure Position Sitting Pulse Oximetry 97 94 95 Oxygen Delivery Method Room Air Room Air 04/18/19 22:06 04/18/19 22:42 04/18/19 22:43 Temperature Temperature Source Sepsis Recent Fever Within 48 Hours Sepsis New/Unexplained Change in Mental Status Sepsis Action Taken by Nursing Pulse Rate Pulse Rate from SpO2 Sensor 88 83 84 Pulse Rhythm Pulse Strength Respiratory Rate Respiratory Effort / Characteristics Respiratory Depth Respiratory Pattern Blood Pressure 107/58 L Blood Pressure Mean 74 Blood Pressure Position Pulse Oximetry 95 96 96 Oxygen Delivery Method 04/18/19 22:45 04/18/19 23:10 04/18/19 23:11 Temperature 36.5 C Temperature Source Oral Sepsis Recent Fever Within 48 Hours Sepsis New/Unexplained Change in Mental Status Sepsis Action Taken by Nursing Pulse Rate Pulse Rate from SpO2 Sensor 87 85 86 Pulse Rhythm Pulse Strength Respiratory Rate Respiratory Effort / Characteristics Respiratory Depth Respiratory Pattern Blood Pressure 115/61 Blood Pressure Mean 79 Blood Pressure Position Pulse Oximetry 95 96 97 Oxygen Delivery Method 04/18/19 23:15 04/18/19 23:30 04/18/19 23:31 Temperature Temperature Source Sepsis Recent Fever Within 48 Hours Sepsis New/Unexplained Change in Mental Status Sepsis Action Taken by Nursing Pulse Rate Pulse Rate from SpO2 Sensor 88 82 87 Pulse Rhythm Pulse Strength Respiratory Rate Respiratory Effort / Characteristics Respiratory Depth Respiratory Pattern Blood Pressure Blood Pressure Mean Blood Pressure Position Pulse Oximetry 96 96 95 Oxygen Delivery Method 04/18/19 23:45 04/19/19 00:00 04/19/19 00:01 Temperature Temperature Source Sepsis Recent Fever Within 48 Hours Sepsis New/Unexplained Change in Mental Status Sepsis Action Taken by Nursing Pulse Rate Pulse Rate from SpO2 Sensor 89 91 H 87 Pulse Rhythm Pulse Strength Respiratory Rate Respiratory Effort / Characteristics Respiratory Depth Respiratory Pattern Blood Pressure 130/73 Blood Pressure Mean 92 Blood Pressure Position Pulse Oximetry 99 97 97 Oxygen Delivery Method Room Air GENERAL: Patient is in no acute distress. HEENT: No acute trauma, normocephalic atraumatic, mucous membranes moist, no n joyce congestion, mild scleral icterus. NECK: No stridor, no adenopathy, no meningismus, trachea is midline. LUNGS: Clear to auscultation bilaterally, no wheeze, no rhonchi, breath sounds equal. HEART: Mildly tachycardic, regular rhythm, no murmurs. ABDOMEN: Soft, nontender, bowel sounds positive, no hernias, no peritonitis. EXTREMITIES: No cyanosis or edema, full range of motion of all the joints without pain or difficulty, no signs for acute trauma. NEUROLOGIC: Oriented x 3, no acute motor or sensory deficits, no focal weakness. SKIN: No rash, mild jaundice, no diaphoresis. Course 2040: Past medical records reviewed. The patient was evaluated in room B6. A complete history and physical exam was performed. 2253: I reviewed the patient's case with Dr. Jean, General Surgery. Dr. Jean will come in and evaluate the patient. 2300: I re-checked the patient and updated him on his test results. 5: The patient's urine dip is negative for infection. 0020: I reviewed the patient's case with Dr. Giles and Dr. Jean. There is no emergent surgery that is going to be performed. The patient is going to be brought into the Hospital. 0022: I reviewed the [facility]'s [facility] He will evaluate the patient for further management. Consultations Consultation #1: I reviewed the patient's case with Dr. Giles, [facility]. He will evaluate the patient for further management. Time: 00:22 Administered Medications Discontinued Medications Acetaminophen (Tylenol) 650 mg PO Q4H PRN PRN Reason: Pain or Fever Stop: 05/19/19 00:59 Last Admin: 04/19/19 07:55 Dose: 650 mg Documented by: [id number] Enalapril Maleate (Vasotec) 20 mg PO DAILY ANAIS Stop: 05/19/19 08:59 Last Admin: 04/19/19 09:29 Dose: 20 mg Documented by: [id number] Sodium Chloride (Nss 1000ml) 1,000 mls @ 999 mls/hr IV .Q1H1M ONE Stop: 04/18/19 21:48 Last Infusion: 04/18/19 23:05 Dose: 0 mls/hr Documented by: [id number] Admin: 04/18/19 22:02 Dose: 999 mls/hr Documented by: [id number] Cefepime HCl (Maxipime) 2,000 mg in 20 mls @ 5 mls/min IV NOW STA; Protocol Stop: 04/18/19 21:59 Last Admin: 04/18/19 22:08 Dose: 5 mls/min Documented by: [id number] Acetaminophen (Ofirmev) 1,000 mg in 100 mls @ 400 mls/hr IV NOW STA Stop: 04/18/19 23:19 Last Infusion: 04/18/19 23:53 Dose: 0 mls/hr Documented by: [id number] Admin: 04/18/19 23:13 Dose: 400 mls/hr Documented by: [id number] Sodium Chloride (Nss 1000ml) 1,000 mls @ 125 mls/hr IV .Q8H ANAIS Stop: 05/19/19 00:59 Last Admin: 04/19/19 09:29 Dose: 125 mls/hr Documented by: [id number] Infusion: 04/19/19 09:14 Dose: 125 mls/hr Documented by: [id number] Admin: 04/19/19 01:14 Dose: 125 mls/hr Documented by: [id number] Metronidazole (Flagyl) 500 mg in 100 mls @ 100 mls/hr IV Q8H ANAIS Stop: 04/29/19 00:59 Last Admin: 04/19/19 09:28 Dose: 100 mls/hr Documented by: [id number] Infusion: 04/19/19 02:20 Dose: 0 mls/hr Documented by: [id number] Admin: 04/19/19 01:14 Dose: 100 mls/hr Documented by: [id number] Cefepime HCl 2,000 mg/ Syringe 20 mls @ 5.5 mls/min IV Q8H ANAIS; Protocol Stop: 04/29/19 05:59 Last Admin: 04/19/19 05:22 Dose: 5.5 mls/min Documented by: [id number] Insulin Aspart (Novolog Flexpen) 0 units SC Q6 ANAIS Stop: 05/19/19 05:59 Last Admin: 04/19/19 12:30 Dose: Not Given Documented by: [id number] Cosigned by: [id number] Admin: 04/19/19 05:25 Dose: Not Given Documented by: [id number] Cosigned by: [id number] Ketorolac Tromethamine (Toradol) 15 mg IV NOW STA Stop: 04/18/19 20:49 Last Admin: 04/18/19 22:02 Dose: 15 mg Documented by: [id number] Medical Decision Making Differential Diagnosis Differential diagnosis includes: sepsis, bacteremia, PNA, UTI, liver or renal failure, electrolyte imbalance, dehydration, viral illness, Lyme disease, anaplasmosis Medical Records Attestation: I reviewed the patient's medical records. Home Medications Current Medication List: was personally reviewed by me Laboratory Data Attestation: I reviewed the patient's lab results. Result diagrams: 04/19/19 05:36 04/19/19 05:36 Lab Results 04/18/19 04/18/19 04/18/19 Range/Units 21:28 21:28 21:28 WBC 9.62 (4.8-10.8) K/uL RBC 4.36 L (4.7-6.1) M/uL Hgb 12.2 L (14.0-18.0) g/dL Hct 36.2 L (42-52) % MCV 83.0 (80-100) fL MCH 28.0 (25-34) pg MCHC 33.7 (32-36) g/dL RDW Std Deviation 44.8 (36.4-46.3) fL RDW Coeff of Marnie 14.7 H (11.5-14.5) % Plt Count 297 (130-400) K/uL MPV 9.7 (7.4-10.4) fL Immature Gran % (Auto) 0.1 % Neut % (Auto) 87.3 % Lymph % (Auto) 5.1 % [place] % (Auto) 7.0 % Eos % (Auto) 0.3 % Baso % (Auto) 0.2 % Immature Gran # (Auto) 0.01 (0.00-0.02) K/uL Neut # (Auto) 8.40 H (1.4-6.5) K/uL Lymph # (Auto) 0.49 L (1.2-3.4) K/uL [place] # (Auto) 0.67 H (0.11-0.59) K/uL Eos # (Auto) 0.03 (0-0.5) K/uL Baso # (Auto) 0.02 (0-0.2) K/uL PT 11.7 (9.0-12.0) Seconds INR 1.2 H (0.9-1.1) APTT 32.1 H (21.0-31.0) Seconds PTT Ratio 1.2 Sodium 135 L (136-145) mmol/L Potassium 3.5 (3.5-5.1) mmol/L Chloride 104 (98-107) mmol/L Carbon Dioxide 23 (21-32) mmol/L Anion Gap 9.0 (3-11) BUN 13 (7-18) mg/dl Creatinine 0.99 (0.6-1.4) mg/dl Est Cr Clr Drug Dosing 80.3 ml/min Est GFR ( Amer) 91.6 Est GFR (Non-Af Amer) 79.0 BUN/Creatinine Ratio 13.4 (10-20) Glucose 144 H (70-99) mg/dl Lactate (0.4-2.0) mmol/L Calcium 9.0 (8.5-10.1) mg/dl Magnesium 2.2 (1.8-2.4) mg/dl Total Bilirubin 2.1 H (0.2-1) mg/dl AST 15 (15-37) U/L ALT 25 (12-78) U/L Alkaline Phosphatase 94 (45-117) U/L Total Protein 7.0 (6.4-8.2) gm/dl Albumin 3.1 L (3.4-5.0) gm/dl Globulin 3.9 (2.5-4.0) gm/dl Albumin/Globulin Ratio 0.8 L (0.9-2) Procalcitonin (0-0.5) ng/ml Urine Color Urine Appearance (Clear) Urine pH (4.5-7.5) Ur Specific Christmas (1.000-1.030) Urine Protein (Negative) Urine Glucose (UA) (Negative) Urine Ketones (Negative) Urine Blood (Negative) Urine Nitrite (Negative) Urine Bilirubin (Negative) Urine Urobilinogen (Negative) Ur Leukocyte Esterase (Negative) Lyme Disease IgG Ab (Negative) Lyme Disease IgM Ab (Negative) 04/18/19 04/18/19 04/18/19 Range/Units 21:28 21:30 23:00 WBC (4.8-10.8) K/uL RBC (4.7-6.1) M/uL Hgb (14.0-18.0) g/dL Hct (42-52) % MCV (80-100) fL MCH (25-34) pg MCHC (32-36) g/dL RDW Std Deviation (36.4-46.3) fL RDW Coeff of Marnie (11.5-14.5) % Plt Count (130-400) K/uL MPV (7.4-10.4) fL Immature Gran % (Auto) % Neut % (Auto) % Lymph % (Auto) % [place] % (Auto) % Eos % (Auto) % Baso % (Auto) % Immature Gran # (Auto) (0.00-0.02) K/uL Neut # (Auto) (1.4-6.5) K/uL Lymph # (Auto) (1.2-3.4) K/uL [place] # (Auto) (0.11-0.59) K/uL Eos # (Auto) (0-0.5) K/uL Baso # (Auto) (0-0.2) K/uL PT (9.0-12.0) Seconds INR (0.9-1.1) APTT (21.0-31.0) Seconds PTT Ratio Sodium (136-145) mmol/L Potassium (3.5-5.1) mmol/L Chloride (98-107) mmol/L Carbon Dioxide (21-32) mmol/L Anion Gap (3-11) BUN (7-18) mg/dl Creatinine (0.6-1.4) mg/dl Est Cr Clr Drug Dosing ml/min Est GFR ( Amer) Est GFR (Non-Af Amer) BUN/Creatinine Ratio (10-20) Glucose (70-99) mg/dl Lactate 1.0 (0.4-2.0) mmol/L Calcium (8.5-10.1) mg/dl Magnesium (1.8-2.4) mg/dl Total Bilirubin (0.2-1) mg/dl AST (15-37) U/L ALT (12-78) U/L Alkaline Phosphatase (45-117) U/L Total Protein (6.4-8.2) gm/dl Albumin (3.4-5.0) gm/dl Globulin (2.5-4.0) gm/dl Albumin/Globulin Ratio (0.9-2) Procalcitonin 0.59 H (0-0.5) ng/ml Urine Color Yellow Urine Appearance Clear (Clear) Urine pH 5.5 (4.5-7.5) Ur Specific Christmas 1.012 (1.000-1.030) Urine Protein Negative (Negative) Urine Glucose (UA) Negative (Negative) Urine Ketones 1+ H (Negative) Urine Blood Negative (Negative) Urine Nitrite Negative (Negative) Urine Bilirubin Negative (Negative) Urine Urobilinogen Positive H (Negative) Ur Leukocyte Esterase Negative (Negative) Lyme Disease IgG Ab Negative (Negative) Lyme Disease IgM Ab Negative (Negative) Imaging Data Radiologist's Impression: Radiology results as stated below per my review and the radiologist's interpretation: XR chest 1V portable CLINICAL HISTORY: Sepsis COMPARISON STUDY: No previous studies for comparison. FINDINGS: Lung volumes are normal. Lungs are clear. There is no pneumothorax or pleural effusion. Cardiac size is normal. Mediastinal contours are normal. There is no evidence for pulmonary edema. Lucency under the hemidiaphragms favors pneumoperitoneum. IMPRESSION: 1. Lucency under the hemidiaphragms which favors pneumoperitoneum. This could be correlated with abdominal pain. Findings discussed with Dr. Lucero at time of dictation. 2. No acute cardiopulmonary findings. Electronically signed by: Lee Mcdowell M.D. 04/18/2019 9:[address] OF THE ABDOMEN AND PELVIS WITHOUT CONTRAST CLINICAL HISTORY: poss perf or free air COMPARISON STUDY: No previous studies for comparison. TECHNIQUE: Axial images of the abdomen and pelvis were obtained without IV co ntrast. Images were reviewed in the axial, sagittal, and coronal planes. Automated exposure control was utilized for the study. A dose lowering technique was utilized adhering to the principles of ALARA. FINDINGS: Lung bases are unremarkable. A small amount of pneumomediastinum located anterior to the distal esophagus likely originates from the abdomen and pelvis. There is extensive pneumoperitoneum. The source for pneumoperitoneum is not clear on this examination. There is colonic diverticulosis. No bowel wall thickening is identified to definitively indicate acute diverticulitis. Unenha nced images of the liver, adrenal glands, kidneys and pancreas are unremarkable. There is no biliary or pancreatic ductal dilatation. There is minimal pericholecystic infiltration however the gallbladder is not distended. There is no hydronephrosis. There is mild splenomegaly. Trace perihepatic ascites is noted. There is no pneumatosis. The appendix is unremarkable. Note is made of a complex fluid collection within the left anterior aspect of the pelvis and measures 8.8 x 7.8 cm this extends adjacent infiltration with suspected thickening of the wall of this fluid collection. There is mass effect upon the bladder which is mildly distended. An additional 4.7 x 2.9 cm right anterior pelvic fluid collection is noted. No suspicious osseous lesion is noted. No evidence for a bowel obstruction. The prostate is surgically absent. Fat- containing left inguinal hernia is noted. There is gas within the umbilical hernia. IMPRESSION: 1. Extensive pneumoperitoneum. In the absence of recent procedure, the findings suggest a perforated hollow viscus. Definitive source not identified on this exam although considerations include a perforated diverticulum or peptic ulcer. 2. 8.8 x 7.8 cm hypodensity within the left anterior aspect of the pelvis with wall thickening and adjacent infiltration. Given prostatectomy, this favors a lymphocele and the appearance raises the possibility of an infected lymphocele. A simple appearing 4.7 x 2.9 cm right anterior pelvic fluid collection which may reflect an additional lymphocele. 3. Mild splenomegaly. Electronically signed by: Lee Mcdowell M.D. 04/18/2019 10:38 PM Blood Pressure Blood Pressure Findings: Normal blood pressure Blood Pressure Disposition: did not require urgent referral MDM Narrative There is no leukocytosis. The patient is somewhat anemic though with a hemoglobin of 12. No concerning coagulopathy. No significant electrolyte abnormality or kidney failure. Lactic acid level was not elevated. P rocalcitonin was mildly elevated. Bilirubin was slightly elevated at 2.1, this explains the skin discoloration. Urinalysis does not show evidence for infection. Lyme disease testing was negative. Chest film did not show pneumonia, free air was suspected. An abdominal and pelvis CT was done, there was significant free air, there was a fluid collection in the pelvis consistent with a seroma or possibly abscess. The collection was in the area of his prostate surgery. The patient received IV Toradol, IV saline, IV cefepime, IV Tylenol. He does seem comfortable. The patient does not have any abdominal pain on exam. He certainly does not have peritonitis. Because of the free air findings, I did consult general surgery. Admission was recommended, emergent surgery was not felt warranted. I spoke with case management. The on-call hospitalist was consulted. The source for this infection is not completely clear but certainly may be from the collection of fluid in the pelvis. This area will likely need drained. As the patient's procedure was done in the [facility], we are not going to attempt transfer this evening. Transfer may be required though at some point if the patient's issues cannot be addressed here. Impression & Plan Intra-abdominal free air of unknown etiology, Elevated bilirubin, Fever, Anemia Discharge Plan Visit Data *Final* Discharge Date/Time: 04/19/19 00:46 Chief Complaint: Fever Stated Complaint: FEVER,SHAKING ED Provider: Osmel Lucero Discharge Problem: Intra-abdominal free air of unknown etiology, Elevated bilirubin, Fever, Anemia Patient Disposition: Admitted As Inpatient Condition: Good Discharge Instructions Interventions: ED Discharge Assessment Last Done: 04/19/19 00:46 Discharge Problem: Fever Qualifiers: Fever type: unspecified Qualified Code(s): R50.9 - Fever, unspecified Anemia Qualifiers: Anemia type: unspecified type Qualified Code(s): D64.9 - Anemia, unspecified The scribe's documentation has been prepared under my direction and personally reviewed by me in its entirety. I confirm that the note above accurately reflects all work, treatment, procedures, and medical decision making performed by me.
--- NOTE | 2019-04-29 22:49 | Urology Consultation ---
Date of Consultation April 29, 2019 History of Present Illness Reason for Consultation: fever and pelvic fluid collection plus free air Attending Physician: Julio Murphy DO History of Present Illness I am asked to evaluate ptient for fever free air in abdomen and large pelvic fluid collections. he is several week s/p lap prostatectomy at [facility]. He has large fluid collection in pelvis anterior and superior to bladder concerning for infection. These will need to be drained. He will need to be moved to a hospital with access to interventional radiology. Allergies Allergy/AdvReac Type Severity Reaction Status Date / Time Penicillins Allergy Hives Verified 04/19/19 00:14 Home Medications Home Medications Medication Instructions Recorded Confirmed Type acetaminophen [Mapap 650 mg PO Q4H PRN #90 tab 04/19/19 Rx (acetaminophen)] cefepime 2 g IV Q12H PRN #10 ea 04/19/19 Rx enalapril maleate 20 mg PO DAILY #10 tab 04/19/19 Rx nitroglycerin [Nitrostat] 0.4 mg SUBLINGUAL UD PRN #30 tab 04/19/19 Rx ondansetron HCl (PF) 4 mg IV Q6H PRN #10 ml 04/19/19 Rx Patient History Medical History Elevated bilirubin (Chronic) Diabetes type 2, controlled Hypercholesterolemia Hypertension Surgical History H/O prostatectomy (Chronic) laparoscopic single site at [facility] 03/06 H/O hemorrhoidectomy Family History Other No significant family history Social History Preferred Language: Lao Communication Ability: Effective Hose Finisher Required: No Beliefs That Will Affect Care: None Current Living Situation: Family Other Information That Helps Us Care for You: No Feels Safe at Home: Yes Safety Concerns: Feels Safe At This Time Smoking Status: Never smoker Do You Dip or Chew Tobacco: No Second Hand Exposure: No Tobacco Cessation Education Requested by Patient: No Hx Alcohol Use: No Hx Substance Use: No
== END 2019-04-19 12:45 | disposition short-term general hospital (02) | DRG 700 ==
LOC: ED 20:03 → 2S 04-19 00:06